=== PATIENT | male | born 1955 | race African-American/Black ===

== ENCOUNTER 2019-08-25 11:53 | Emergency (ER) | payer MEDICAID ==
[~2019-08-25] VITALS: Ht 193 cm; Wt 87.5 kg
[2019-08-25 11:53] VITALS: BP_SYST 115
[2019-08-25 13:50] VITALS: BP_SYST 116
== END 2019-08-25 13:50 | disposition home or self-care (01) ==
LOC: SED 11:53
DX: S39.011A Strain of muscle, fascia and tendon of abdomen, initial encounter (principal); R03.0 Elevated blood-pressure reading, without diagnosis of hypertension; Z88.8 Allergy status to other drugs, medicaments and biological substances; X58.XXXA Exposure to other specified factors, initial encounter; Y93.89 Activity, other specified; Y92.89 Other specified places as the place of occurrence of the external cause; Y99.8 Other external cause status
CPT/HCPCS: 76857; 99284